=== PATIENT | female | born 1935 | race Caucasian/White ===

== ENCOUNTER → 2016-09-22 | Outpatient (CLI) | payer MEDICARE ==
[~2016-09-22] MED LIST: CELEBREX100 MG PO; COLACE100 MG PO; COUMADIN ** IA5 MG PO; COUMADIN **IA7.5 MG PO; CYANOCOBAL1000 MCG/1 IM; FLECAINIDE ACE150 MG PO; FLECAINIDE ACET50 MG PO; HYDRODIURIL25 MG PO; NORVASC2.5 MG PO; OMEPRAZOLE40 MG PO; TOPROL XL25 MG PO; TYLENOL EXTRA500 MG PO
== END | disposition disaster alternative care site (69) ==
LOC: GRAD 11:28
DX: M25.551 Pain in right hip (principal); R93.7 Abnormal findings on diagnostic imaging of other parts of musculoskeletal system